=== PATIENT | male | born 1980 | race Two or more races ===

== ENCOUNTER 2016-11-03 13:35 | Emergency (ER) | payer SELFPAY ==
[2016-11-03 14:19] VITALS: RESP 16; TEMP 97.7
--- NOTE | 2016-11-03 15:20 | EDPHY ---
HPI/HX/ROS/PE/MDM Narrative: Chief complaint: Anxiety HPI: 36-year-old male presenting complaining of feeling anxious and depressed. Patient states that he was recently released from [facility] and is now long-term house. While in the department corrections he was evaluated told that he was probably have some clinical depression but was released before had a mental health evaluation. Patient states that he the last couple of years he has been having of the very anxious. Gets of some mild discomfort in his chest. Feels like he is skin is burning. Patient does states to be feeling very depressed but is not hopeless. HE denies feeling suicidal or homicidal. He denies any auditory or visual hallucinations. He is here today hoping to get some help with his anxiety. The some mild shortness of breath. No fevers or chills. NO cough. NO nausea vomiting. he does smoke. Denies alcohol or other drug use. ROS: Ten point review of systems is negative except as noted in HPI. Gen: Awake, Alert, No Distress HEENT: Nose: no rhinorrhea Eyes: PERRLA, EOMI Mouth: Moist mucosa Neck: Supple, no JVD Chest: nontender, lungs clear to auscultation Heart: S1, S2 normal, no murmur Abd: Soft, non-tender, no guarding Back: no CVA tenderness, no midline tenderness Ext: no edema, non-tender Skin: no rash Neuro: CN II-XII intact, Sensation grossly intact, Strength 5/5 in bilateral upper and lower extremities - Data Points Medications Given: Discontinued Medications Lorazepam (Ativan) 1 mg PO EDNOW ONE Stop: 11/03/16 15:22 Last Admin: 11/03/16 15:29 Dose: 1 mg General Time Seen by Provider: 11/03/16 15:07 Initial Vital Signs: Initial Vital Signs Temperature (C) 36.5 C 11/03/16 14:17 Heart Rate 79 11/03/16 14:17 Respiratory Rate 16 11/03/16 14:17 Blood Pressure 134/66 H 11/03/16 14:17 O2 Sat (%) 93 11/03/16 14:17 O2 Delivery Mode Room Air Allergies/Adverse Reactions: No Known Allergies Allergy (Unverified 11/03/16 14:16) Home Medications: Medication Instructions Recorded NK [No Known Home Meds] 11/03/16 Departure - Departure Disposition: Home, Routine, Self-Care Clinical Impression: Anxiety, Depression Condition: Good Instructions: Lorazepam (By mouth), Depression (ED), Anxiety (ED) Additional Instructions: Follow up with [facility] on Saturday. Call the office to be seen that day. Return to the emergency department for increasing anxiety, worsening depression, thoughts of suicide or thoughts of harming others. Hallucinations, or any other concerns. Referrals: NONE *PRIMARY CARE P,. [Primary Care Provider] - As per Instructions [facility] [Outside] - As per Instructions
[2016-11-03] MEDS ORDERED: LORazepam 1 MG TAB PO ONE (15:21)
[2016-11-03 15:29] VITALS: O2SAT 94
[2016-11-03] MEDS ORDERED: LORAZEPAM 1 MG PREPACK#4 BTL TAKEHOME ONE (15:57)
[2016-11-03 16:12] VITALS: BP 129/85; PULSE 76
== END 2016-11-03 16:11 | disposition home or self-care (01) ==
DX: F41.8 Other specified anxiety disorders (principal); F17.200 Nicotine dependence, unspecified, uncomplicated

== ENCOUNTER 2016-11-11 13:44 | Emergency (ER) | payer SELFPAY ==
[2016-11-11 13:56] VITALS: BP 119/74; PULSE 88; RESP 18; TEMP 98.4; O2SAT 95
[2016-11-11] MEDS ORDERED: LORazepam 1 MG TAB PO ONE (14:17)
--- NOTE | 2016-11-11 14:18 | EDPHY ---
H & P Time Seen by Provider: 11/11/16 14:10 HPI/ROS: CHIEF COMPLAINT: Anxiety HISTORY OF PRESENT ILLNESS: 36-year-old male complaining of continued anxiety, depression, without suicidal homicidal ideation, without hallucination. He was released recently from the [facility], currently living in a [facility] house. He has been previously seen in the ER for similar complaint. He has an upcoming appointment with [facility] on Saturday, today is Saturday. He denies: Suicidal homicidal ideation, chest or back pain, dyspnea , abdominal pain, hopelessness, hallucination,Syncope or near syncope, seizure, alcohol or drug use. REVIEW OF SYSTEMS: A ten point review of systems was performed and is negative with the exception of the items mentioned in the HPI PAST MEDICAL & SURGICAL HISTORY: Self-reported depression history SOCIAL HISTORY: no alcohol no drug use PHYSICAL EXAM (Prior to examination, patient consented to physical exam, hands were washed and my usual and customary physical exam procedures followed) 1) GENERAL: Well-developed, well-nourished, alert and oriented. Appears nontoxic . 2) HEAD: Normocephalic, atraumatic 3) HEENT: Pupils equal, round, reactive to light bilaterally. Sclera anicteric. 4) NECK: Full range of motion, no meningeal signs. 5) LUNGS: Clear auscultation bilaterally 6) HEART: Regular rate and rhythm, no murmur, no heave, no gallop. 7) ABDOMEN: No guarding, no rebound, no focal tenderness, negative McBurney's, negative Lieberman's, negative Rovsing's, negative peritoneal sign, 8) MUSCULOSKELETAL: No peripheral edema or discoloration. 9) BACK: No CVA tenderness. 10) SKIN: No rash, no petechiae. 11) Psychiatric: Patient is oriented X 3, there is no agitation. DIFFERENTIAL DIAGNOSIS: in no particular include but not limited to depression , anxiety, marisa Smoking Status: Current every day smoker Constitutional: Initial Vital Signs Temperature (C) 36.9 C 11/11/16 13:53 Heart Rate 88 11/11/16 13:53 Respiratory Rate 18 11/11/16 13:53 Blood Pressure 119/74 11/11/16 13:53 O2 Sat (%) 95 11/11/16 13:53 Allergies/Adverse Reactions: No Known Allergies Allergy (Verified 11/11/16 13:52) Home Medications: Medication Instructions Recorded LORazepam [Ativan 1 mg (RX)] 1 mg PO Q6 PRN #7 tab 11/11/16 MDM/Departure - [facility] ED Course/Re-evaluation: Doubt PE. Recommend he keep his appointment [facility] on Saturday (today is Saturday). He does not endorse suicidal or homicidal ideation. feels comfortable being discharged with benzodiazepine. Usual customary psychiatric precautions instructions provided - Depart Disposition: Home, Routine, Self-Care Clinical Impression: Anxiety Condition: Good Instructions: Anxiety (ED) Additional Instructions: Return to the ER if you develop thoughts of hurting herself or hurting anybody else or have any new or worsening symptoms. Prescriptions: LORazepam [Ativan 1 mg (RX)] 1 mg PO Q6 PRN #7 tab PRN Reason: Anxiety Referrals: [facility] [Clinic] - 11/14/16 (Keep your appointment this Saturday at [facility])
== END 2016-11-11 14:33 | disposition home or self-care (01) ==
DX: F41.9 Anxiety disorder, unspecified (principal); F17.200 Nicotine dependence, unspecified, uncomplicated